=== PATIENT | female | born 1995 | race Caucasian/White ===

== ENCOUNTER 2017-11-22 15:36 | Emergency (ER) | payer OTHER ==
[~2017-11-22] VITALS: Ht 165.1 cm; Wt 55.7 kg
[2017-11-22 15:39] VITALS: TEMP 36.7; Ht 165.1 cm; Wt 55.7 kg
[2017-11-22] MEDS ORDERED: SODIUM CHLORIDE 0.9% 1000ML 1,000 ML IV STA (15:51)
[2017-11-22] MEDS ORDERED: ONDANSETRON INJ 2 MG/ML 2 ML VIAL IV STA (15:51)
[2017-11-22 16:15] LABS: BASO % 0.2 %; BASO ABS # 0.01 K/uL (0-0.2); HEMOGLOBIN 11.7 g/dL (12.0-16.0); LYMPH % 6.8 %; LYMPH ABS # 0.31 K/uL (1.2-3.4); MEAN CELL VOLUME 79.1 fL (80-100); MEAN CORPUSCULAR HGB CONC 31.6 g/dl (32-36); MEAN PLATELET VOLUME 9.3 fL (7.4-10.4); MONO % 5.7 %; MONO ABS # 0.26 K/uL (0.11-0.59); NEUT % 87.3 %; NEUT ABS # 3.97 K/uL (1.4-6.5); PLATELET COUNT 233 K/uL (130-400); RED CELL DISTRIBUTION WIDTH CV 16.1 % (11.5-14.5); RED CELL DISTRIBUTION WIDTH SD 46.7 fL (36.4-46.3); WHITE BLOOD COUNT 4.55 K/uL (4.8-10.8)
[2017-11-22 16:35] LABS: CREATININE 0.96 mg/dl (0.60-1.20); POTASSIUM 3.9 mmol/L (3.5-5.1)
[2017-11-22] MEDS ORDERED: ONDA4TAB10 SL (16:45)
[2017-11-22 16:50] VITALS: BP 110/65; PULSE 87; O2SAT 98
--- NOTE | 2017-11-22 19:27 | EMERGENCY ROOM VISIT NOTE ---
History Report prepared by [place]: Giuliano Vital Under the Supervision of: Dr. Oswaldo Zamora M.D. First contact with patient: 15:46 Chief Complaint: GI ASSESSMENT Stated Complaint: VOMITING,DIARRHEA,DEHYDRATION Nursing Triage Summary: patient reports feeling feverish with n/v/d x1 day afebrile in triage History of Present Illness The patient is a 22 year old female who presents to the Emergency Room with complaints of a persistent illness that started this morning. She notes that she recently came back from a trip to [facility], and a lot of her friends there were getting sick with similar symptoms. The patient states that she has been nauseous, with episodes of vomiting and diarrhea. She notes that she is having abdominal cramping, and feels like she has had a fever. The patient says that she has not been drinking as much as usual today, so she has had a decreased frequency of urination. She denies any other urinary symptoms. The patient notes that her stool is really watery, but without any blood. She says that she has no personal history of inflammatory bowel disease, but per the patient's father, the patient's maternal grandmother had Crohn's. The patient notes no recent antibiotic use. She says that she has no chronic medical problems. The patient adds that the friends she went to [facility] with had a quick bout of similar symptoms, and they mostly have recovered already. Source of History: patient, parent Onset: This morning Position: other (global) Quality: other (illness) Timing: other (persistent) Associated Symptoms: + fevers (has felt feverish), + nausea, + vomiting, + abdominal pain, + diarrhea, No hematochezia, No urinary symptoms Note: No other associated symptoms noted. Review of Systems See HPI for pertinent positives & negatives. A total of 10 systems reviewed and were otherwise negative. Past Medical & Surgical Medical Problems: (1) No chronic diseases present Family History FH: Crohn's disease Social History Smoking Status: Never Smoker Smokeless Tobacco Use: No Marital Status: single Housing Status: lives with family Occupation Status: student Current/Historical Medications Scheduled Ondasetron Odt (Zofran Odt), 4 MG SL Q6H Physical Exam Vital Signs Date Time Temp Pulse Resp B/P (MAP) Pulse Ox O2 Delivery O2 Flow Rate FiO2 11/22/17 16:50 87 20 110/65 98 5/15/18 15:39 36.7 85 20 96 Room Air Physical Exam Constitutional: Vital signs reviewed. Eyes: Pupils are equal round reactive to light. Conjunctiva are noninjected. ENT: Pharynx is clear without erythema or exudate. Mucous membranes are dry. Neck supple without meningeal signs. Respiratory: Clear to auscultation bilaterally. Breath sounds are equal bilaterally. Cardiovascular: Regular rate and rhythm. No rubs or gallops. GI: Soft, nondistended and nontender. Bowel sounds are present. Musculoskeletal: No peripheral edema. Integumentary: No cyanosis. Neurological: The patient is awake and alert. No focal deficits. Psychiatric: Normal affect. Medical Decision & Procedures Laboratory Results 11/22/17 15:55 Red Blood Count 4.68, Mean Corpuscular Volume 79.1, Mean Corpuscular Hemoglobin 25.0, Mean Corpuscular Hemoglobin Concent 31.6, Mean Platelet Volume 9.3, Neutrophils (%) (Auto) 87.3, Lymphocytes (%) (Auto) 6.8, Monocytes (%) (Auto) 5.7, Eosinophils (%) (Auto) 0.0, Basophils (%) (Auto) 0.2, Neutrophils # (Auto) 3.97, Lymphocytes # (Auto) 0.31, Monocytes # (Auto) 0.26, Eosinophils # (Auto) 0.00, Basophils # (Auto) 0.01 11/22/17 15:55 Test 11/22/17 15:55 White Blood Count 4.55 K/uL (4.8-10.8) Red Blood Count 4.68 M/uL (4.2-5.4) Hemoglobin 11.7 g/dL (12.0-16.0) Hematocrit 37.0 % (37-47) Mean Corpuscular Volume 79.1 fL (80-100) Mean Corpuscular Hemoglobin 25.0 pg (25-34) Mean Corpuscular Hemoglobin Concent 31.6 g/dl (32-36) Platelet Count 233 K/uL (130-400) Mean Platelet Volume 9.3 fL (7.4-10.4) Neutrophils (%) (Auto) 87.3 % Lymphocytes (%) (Auto) 6.8 % Monocytes (%) (Auto) 5.7 % Eosinophils (%) (Auto) 0.0 % Basophils (%) (Auto) 0.2 % Neutrophils # (Auto) 3.97 K/uL (1.4-6.5) Lymphocytes # (Auto) 0.31 K/uL (1.2-3.4) Monocytes # (Auto) 0.26 K/uL (0.11-0.59) Eosinophils # (Auto) 0.00 K/uL (0-0.5) Basophils # (Auto) 0.01 K/uL (0-0.2) RDW Standard Deviation 46.7 fL (36.4-46.3) RDW Coefficient of Variation 16.1 % (11.5-14.5) Immature Granulocyte % (Auto) 0.0 % Immature Granulocyte # (Auto) 0.00 K/uL (0.00-0.02) Anion Gap 5.0 mmol/L (3-11) Est Creatinine Clear Calc Drug Dose 81.5 ml/min Estimated GFR () 98.0 Estimated GFR (Non- 84.5 BUN/Creatinine Ratio 10.0 (10-20) Calcium Level 9.0 mg/dl (8.5-10.1) Laboratory results as reviewed by me. Medications Administered Medications (Trade) Dose Ordered Sig/Cici Route Start Time Stop Time Status Last Admin Dose Admin Sodium Chloride 1,000 ml @ 999 mls/hr Q1H1M STAT IV 11/22/17 15:51 11/22/17 16:51 DC 11/22/17 16:04 999 MLS/HR Ondansetron HCl (Zofran Inj) 4 mg NOW STAT IV 11/22/17 15:51 11/22/17 15:53 DC 11/22/17 16:04 4 MG ED Course 1547: The patient was evaluated in room B4B. A complete history and physical exam was performed. 1551: Zofran Inj 4 mg IV, NSS 1000 ml @ 999 mls/hr IV. 1643: Upon reevaluation, the patient appeared to have improvement of her symptoms. She states that she is feeling better. I discussed the test results with her, and recommended that she get a repeat CBC with her doctor. She verbalized agreement of the treatment plan. She was discharged home. Medical Decision This is a 22-year-old female presents with vomiting and diarrhea. Differential diagnosis includes foodborne illness, gastroenteritis, traveler's diarrhea, dehydration, electrolyte abnormality. I did perform a limited focused review of portions of the patient's old chart on the electronic medical record. The patient has had no prior visits. I did evaluate the patient as noted above. Patient is presenting with vomiting and diarrhea after trip to [facility]. She states that friends he went on the trip also had similar symptoms which are short-lived. Her exam is unremarkable other than signs of dehydration. She has no abdominal tenderness to palpation. IV access was established. I did treat her with normal saline IV. She was also given Zofran IV. I did order and review the patient's blood work as noted in the electronic medical record. She has mild leukopenia. Renal function is unremarkable. I did reassess patient. She is feeling better. I did discuss the test results with the patient and her father. She was advised to follow-up with her doctor and have her CBC rechecked as an outpatient. She was given a prescription for Zofran. Medication Reconcilliation Current Medication List: was personally reviewed by me Blood Pressure Screening Patient's blood pressure: Normal blood pressure Impression Primary Impression: Dehydration Additional Impressions: Vomiting Diarrhea Scribe Attestation The scribe's documentation has been prepared under my direct and personally reviewed by me in its entirety. I confirm that the note above accurately reflects all work, treatment, procedures, and medical decision making performed by me. Departure Information Dispostion Home / Self-Care Prescriptions Ondasetron Odt (ZOFRAN ODT) 4 Mg Tab 4 MG SL Q6H for Nausea, #10 TAB Prov: Oswaldo Zamora M.D. 11/22/17 Referrals No Doctor, Assigned (PCP) Patient Instructions My [facility], Vomit Diarrhea Self Care Additional Instructions You have been examined and treated today on an emergency basis only. This is not a substitute for, or an effort to provide, complete comprehensive medical care. It is impossible to recognize and treat all injuries or illnesses in a single emergency department visit. It is therefore important that you follow up closely with your physician. Call as soon as possible for an appointment. Return for worsening symptoms or if you develop fever, rectal bleeding or any other concerning symptoms. Have your doctor repeat your CBC when you are better. You did have a slightly low white blood cell count. Problem Qualifiers Additional Impressions: Vomiting Vomiting type: unspecified Vomiting Intractability: non-intractable Nausea presence: with nausea Qualified Codes: R11.2 - Nausea with vomiting, unspecified Diarrhea Diarrhea type: unspecified type Qualified Codes: R19.7 - Diarrhea, unspecified
== END 2017-11-22 17:00 | disposition home or self-care (01) ==
LOC: C.EDB 15:38
DX: E86.0 Dehydration (principal); R11.2 Nausea with vomiting, unspecified; R19.7 Diarrhea, unspecified; Z83.79 Family history of other diseases of the digestive system